=== PATIENT | male | born 1960 | race Caucasian/White ===

== ENCOUNTER 2018-01-25 18:36 | Inpatient (IN) | payer BC ==
[2018-01-25] MEDS ORDERED: NACL 0.9% 3 ML SYG IV (21:30)
[2018-01-25] MEDS ORDERED: ALBUTEROL/IPRATROPIUM (NEB) 3 ML AMP HHN (21:30)
[2018-01-25] MEDS ORDERED: ACETAMINOPHEN 325 MG TAB PO (21:30)
[2018-01-25] MEDS ORDERED: ONDANSETRON 4 MG INJ IV (21:30)
[2018-01-25] MEDS ORDERED: HYDROCODONE/APAP (5/325) TAB PO (21:30)
[2018-01-25] MEDS ORDERED: VANCOMYCIN IV PER PHARMACY XX (21:30)
[2018-01-25] MEDS: LINEZOLID 600 MG/D5W (PMX) 300 ML IVPB (23:42)
[2018-01-26] MEDS: PIPER-TAZO 3.375 GM IV (PMX) 100 ML IVPB ×4 (00:35→17:49)
[2018-01-26] MEDS: ZOLPIDEM 5 MG TAB PO ×2 (01:45→23:30)
[2018-01-26] MEDS: PANTOPRAZOLE 40 MG INJ IV (05:13)
[2018-01-26 06:39] LABS: HEMOGLOBIN A1C 5.5 % (0-5.9)
[2018-01-26] MEDS: ENOXAPARIN 40 MG/0.4 ML SYG SC (08:28)
[2018-01-26] MEDS: BIKTARVY PO (08:59)
[2018-01-26] MEDS: LINEZOLID 600 MG/D5W (PMX) 300 ML IVPB (08:59)
[2018-01-26] MEDS: LOSARTAN 50 MG TAB PO (08:59)
[2018-01-26] MEDS: ASPIRIN (EC) 81 MG TAB PO (08:59)
[2018-01-26] MEDS: LOPERAMIDE 2 MG CAP PO (09:32)
[2018-01-26] MEDS: INFLUENZA VIRUS VACCINE 0.5 ML (DISPENSING) IM* (09:34)
[2018-01-26] MEDS: LACTOBACILLUS RHAMNOSUS CAP PO ×2 (12:55→21:21)
[2018-01-26] MEDS ORDERED: VANCOMYCIN IV PER PHARMACY XX (19:30)
[2018-01-26] MEDS: ATORVASTATIN 40 MG TAB PO (21:21)
[2018-01-26] MEDS: CEFTRIAXONE 2 GM/50 ML (PMX) 50 ML IVPB (22:11)
[2018-01-26] MEDS: VANCOMYCIN 1.25 GM in SOD CHLORIDE 0.9% 250 ML IVPB (23:30)
[2018-01-27] MEDS: ZOLPIDEM 5 MG TAB PO (01:29)
[2018-01-27] MEDS: PANTOPRAZOLE (EC) 40 MG TAB PO (06:35)
[2018-01-27] MEDS: LACTOBACILLUS RHAMNOSUS CAP PO (08:45)
[2018-01-27] MEDS: ASPIRIN (EC) 81 MG TAB PO (08:46)
[2018-01-27] MEDS: ENOXAPARIN 40 MG/0.4 ML SYG SC (08:46)
[2018-01-27] MEDS: BIKTARVY PO (08:46)
[2018-01-27] MEDS: LOSARTAN 50 MG TAB PO (08:46)
[2018-01-27] MEDS: LOPERAMIDE 2 MG CAP PO (10:18)
[2018-01-27] MEDS: VANCOMYCIN 1 GM 250 ML IVPB (11:16)
[2018-01-27 12:46] LABS: LYMPHOCYTE - % CD4 (HELPER) 47 % (30-61); LYMPHOCYTE - %CD8 (SUPPRESSOR) 34 % (12-42); LYMPHOCYTE - ABSOLUTE 3187 cells/uL (850-3900); LYMPHOCYTE - ABSOLUTE CD4 1497 cells/uL (490-1740); LYMPHOCYTE - ABSOLUTE CD8 1078 cells/uL (180-1170); LYMPHOCYTE - CD4/CD8 RATIO 1.39 (0.86-5.00)
[2018-01-27 15:20] LABS: ADD MAN DIFF? NO
[2018-01-27 15:22] LABS: WHITE BLOOD COUNT 8.9 10^3/ul (4.8-10.8)
[2018-01-27 15:22] LABS: BASOPHIL # 0.1 10^3/ul (0.0-0.1); BASOPHILS % 0.7 % (0.0-2.0); EOSINOPHILS # 0.3 10^3/ul (0.0-0.5); EOSINOPHILS % 3.1 % (0.0-7.0); HEMATOCRIT 37.7 % (42.0-52.0); HEMOGLOBIN 12.7 g/dl (14.0-18.0); LYMPHOCYTES # 2.7 10^3/ul (0.8-2.9); LYMPHOCYTES % 29.8 % (15.0-51.0); MEAN CORPUSCULAR HEMOGLOBIN 29.6 pg (29.0-33.0); MEAN CORPUSCULAR HGB CONC 33.7 g/dl (32.0-37.0); MEAN CORPUSCULAR VOLUME 87.9 fl (82.0-101.0); MEAN PLATELET VOLUME 10.5 fl (7.4-10.4); MONOCYTE # 0.7 10^3/ul (0.3-0.9); NEUTROPHILS % 55.9 % (39.0-77.0); PLATELET COUNT 212 10^3/UL (140-415); RED BLOOD COUNT 4.29 10^6/ul (4.70-6.10); RED CELL DISTRIBUTION WIDTH 13.4 % (11.5-14.5)
[2018-01-27 15:40] LABS: ALANINE AMINOTRANSFERASE 20 IU/L (13-69); ALBUMIN 3.1 g/dl (3.3-4.9); ALKALINE PHOSPHATASE 67 IU/L (42-121); ANION GAP 9 (5-13); ASPARTATE AMINO TRANSFERASE 26 IU/L (15-46); BILIRUBIN,INDIRECT 0.2 mg/dl (0-1.1); BILIRUBIN,TOTAL 0.2 mg/dl (0.2-1.3); BLOOD UREA NITROGEN 21 mg/dl (7-20); CALCIUM 8.6 mg/dl (8.4-10.2); CARBON DIOXIDE 26 mmol/L (21-31); CHLORIDE 105 mmol/L (97-110); CREATININE 0.81 mg/dl (0.61-1.24); Estimated GFR > 60 mL/min (>60); GLUCOSE 92 mg/dl (70-220); POTASSIUM 4.4 mmol/L (3.5-5.1); SODIUM 140 mmol/L (135-144); TOTAL PROTEIN 6.2 g/dl (6.1-8.1)
== END 2018-01-27 18:45 | disposition home health service (06) | DRG 871 ==
LOC: 2NE 18:36
PROVIDERS: Internal Medicine
DX: A41.9 Sepsis, unspecified organism (principal); I33.0 Acute and subacute infective endocarditis; A08.39 Other viral enteritis; N17.9 Acute kidney failure, unspecified; I25.10 Atherosclerotic heart disease of native coronary artery without angina pectoris; J45.909 Unspecified asthma, uncomplicated; I12.9 Hypertensive chronic kidney disease with stage 1 through stage 4 chronic kidney disease, or unspecified chronic kidney disease; N18.9 Chronic kidney disease, unspecified; I37.1 Nonrheumatic pulmonary valve insufficiency; F12.90 Cannabis use, unspecified, uncomplicated; F15.90 Other stimulant use, unspecified, uncomplicated; Z95.1 Presence of aortocoronary bypass graft; Z79.82 Long term (current) use of aspirin
CPT/HCPCS: 72148; 80053; 83036; 85025; 86360; 87040; 87045; 87075; 87536; 90686